=== PATIENT | male | born 1975 | race Two or more races ===

== ENCOUNTER 2020-08-25 01:20 | Inpatient (IN) | payer MEDICAID, OTHER ==
[~2020-08-25] VITALS: Ht 185.4 cm; Wt 71.5 kg
[2020-08-25 01:58] LABS: Hematocrit 44.1 % (41.0-53.0); Hemoglobin 14.6 g/dL (13.5-17.5); Mean Corpuscular Hgb Conc. 33.2 g/dL (32.0-36.0); Mean Corpuscular Volume 84.3 fL (80.0-100.0); Platelet Count (auto) 280 10^3/uL (140-450); Red Blood Cells 5.23 10^6/uL (4.5-5.90); Red Cell Distribution Width 14.9 % (11.8-14.3); White Blood Cell 11.4 10^3/uL (4.4-10.8)
[2020-08-25 02:13] LABS: INR 1.03 (0.9-1.15); Partial Thromboplastin Time 28.7 sec (23.0-31.2)
[2020-08-25 02:23] LABS: Basophils % (manual) 0 (0.0-2.0); Blast Cells 0; Metamyelocytes % 0; Monocytes % (manual) 0 (0-12); Myelocytes % 0; Promyelocytes % 0; Reactive Lymphocytes 0
[2020-08-25 02:25] LABS: Albumin 3.3 g/dL (3.4-5.0); Anion Gap 7 (5-15); BUN/Creatinine Ratio 20.8; Blood Urea Nitrogen 16 mg/dL (7-18); Calcium 8.4 mg/dL (8.5-10.1); Carbon Dioxide 24 mmol/L (21-32); Chloride 108 mmol/L (98-107); GFR African American 140 mL/min; GFR Non-African American 116 mL/min; Glucose 81 mg/dL (74-106); Potassium 4.2 mmol/L (3.5-5.1); Sodium 139 mmol/L (136-145)
[2020-08-25 02:31] LABS: Alanine Aminotransferase 17 U/L (16-61); Alkaline Phosphatase 160 U/L (45-117); Aspartate Aminotransferase 9 U/L (15-37); Bilirubin, Total 0.3 mg/dL (0.2-1.0); Total Protein 7.1 g/dL (6.4-8.2)
[2020-08-25] MEDS ORDERED: methylPREDNISolone SOD SUCC 125 MG/2 ML VL IV ONE (02:45)
[2020-08-25] MEDS ORDERED: levoFLOXacin 750MG 150 ML IV ONE (02:45)
[2020-08-25] MEDS ORDERED: IPRATROPIUM BROM 0.5 MG/2.5ML INH SOL HHN ONE (02:45)
[2020-08-25] MEDS ORDERED: ALBUTEROL SULF 2.5 MG/0.5ML(0.5%) NEB SOLN HHN ONE (02:45)
[2020-08-25 03:24] LABS: Band Neutrophils % (manual) 2; Eosinophils % (manual) 21 (0-7); Lymphocytes % (manual) 26 (10.0-50.0)
[2020-08-25] MEDS ORDERED: AZITHROMYCIN 500MG/ 250ML 250 ML IV ONE (07:00)
[2020-08-25] MEDS ORDERED: cefTRIAXone 1GM/50ML D5W 50 ML IV ONE (07:00)
[2020-08-25] MEDS ORDERED: MORPHINE SULFATE 4 MG/ML SYR/VIAL IV PRN (07:30)
[2020-08-25] MEDS ORDERED: MORPHINE SULF INJ 2 MG/ML SYRINGE 1ML IV PRN (07:30)
[2020-08-25] MEDS ORDERED: ACETAMINOPHEN 325 MG TAB PO PRN (07:30)
[2020-08-25] MEDS ORDERED: ONDANSETRON HCL 4 MG/2 ML VIAL IV PRN (07:30)
[2020-08-25] MEDS ORDERED: DOCUSATE SOD 100 MG CAP PO PRN (07:30)
[2020-08-25] MEDS ORDERED: NITROGLYCERIN 0.4 MG SL TAB SL PRN (07:30)
[2020-08-25] MEDS ORDERED: TEMAZEPAM 15 MG CAP PO PRN (07:30)
[2020-08-25 08:54] LABS: Cholesterol 148 mg/dL (< 200); HDL Cholesterol 43 mg/dL (40-59); LDL Cholesterol 92 mg/dL (< 100); Triglycerides 54 mg/dL (< 150)
[2020-08-25] MEDS: cefTRIAXone 1GM/50ML D5W 50 ML IV SCH (09:00)
[2020-08-25 09:06] LABS: CRP High Sensitivity 1.07 mg/dL (< 0.3)
[2020-08-25] MEDS: ALBUTEROL SULF 2.5 MG/0.5ML(0.5%) NEB SOLN NEB PRN (09:55)
[2020-08-25] MEDS: IPRATROPIUM BROM 0.5 MG/2.5ML INH SOL NEB PRN (09:55)
[2020-08-25 10:31] VITALS: BP 106/69
[2020-08-25] MEDS: ZINC SULFATE 220mg CAP or TAB PO SCH (10:40)
[2020-08-25] MEDS: MULTIPLE VITAMIN TAB PO SCH (10:40)
[2020-08-25] MEDS: FAMOTIDINE 20 MG TAB PO SCH ×2 (10:40→21:02)
[2020-08-25] MEDS: ASCORBIC ACID 500 MG TAB PO SCH ×2 (10:41→21:02)
[2020-08-25] MEDS: ENOXAPARIN SOD 40 MG/0.4 ML SYRINGE SC SCH (10:41)
[2020-08-25 11:00] VITALS: BP 106/69
[2020-08-25 12:28] LABS: Urine Bacteria NONE SEEN /hpf (None Seen); Urine Blood Negative /uL (Negative); Urine Specific Gravity 1.006 (1.001-1.035); Urine WBC <1 /hpf (0 - 3)
[2020-08-25 12:58] VITALS: BP 116/72
[2020-08-25 16:54] VITALS: BP 101/57
[2020-08-25] MEDS: HYDROcodone-ACET 5/325MG TAB PO PRN (17:01)
[2020-08-25] MEDS: methylPREDNISolone SOD SUCC 40 MG/ML VL IV SCH (19:36)
[2020-08-25 22:51] VITALS: BP 107/53
[2020-08-25 23:35] LABS: Amphetamine Screen, Urine POSITIVE (NEGATIVE); Barbiturate Scree,Urine NEGATIVE (NEGATIVE); Benzodiazephine Screen, Urine NEGATIVE (NEGATIVE); Cannabinoid Screen, Urine NEGATIVE (NEGATIVE); Cocaine Screen, Urine NEGATIVE (NEGATIVE); Opiate Scree,Urine POSITIVE (NEGATIVE); Phencyclidine Screen, Urine NEGATIVE (NEGATIVE)
[2020-08-26] MEDS: HYDROcodone-ACET 5/325MG TAB PO PRN ×2 (04:41→12:35)
[2020-08-26] MEDS ORDERED: ALBUAER3 IN (04:43)
[2020-08-26] MEDS ORDERED: PERCOT PO (04:43)
[2020-08-26 05:10] VITALS: BP 117/71
[2020-08-26 07:18] LABS: Basophils # (auto) 0 10 ^3/uL (0-0.2); Basophils % (auto) 0.1 % (0.0-2.0); Eosinophils # (auto) 0 10 ^3/uL (0-0.8); Hematocrit 43.1 % (41.0-53.0); Hemoglobin 14.2 g/dL (13.5-17.5); Lymphocytes % (auto) 5.9 % (10.0-50.0); Mean Corpuscular Volume 84.9 fL (80.0-100.0); Monocytes # (auto) 0.9 10 ^3/uL (0-1.3); Monocytes % (auto) 5.5 % (0.0-12.0); Neutrophils # (auto) 14.8 10 ^3/uL (1.6-8.6); Neutrophils % (auto) 88.5 % (37.0-80.0); Nucleated Red Blood Cells % 0.1 %; Platelet Count (auto) 286 10^3/uL (140-450); Red Blood Cells 5.08 10^6/uL (4.5-5.90); Red Cell Distribution Width 14.7 % (11.8-14.3); White Blood Cell 16.7 10^3/uL (4.4-10.8)
[2020-08-26 07:42] LABS: Potassium 4.9 mmol/L (3.5-5.1)
[2020-08-26 07:55] LABS: BUN/Creatinine Ratio 26.2; Bilirubin, Total 0.3 mg/dL (0.2-1.0); Calcium 8.5 mg/dL (8.5-10.1); Total Protein 6.6 g/dL (6.4-8.2)
[2020-08-26] MEDS: methylPREDNISolone SOD SUCC 40 MG/ML VL IV SCH (08:24)
[2020-08-26] MEDS: cefTRIAXone 1GM/50ML D5W 50 ML IV SCH (08:25)
[2020-08-26 08:35] VITALS: BP 96/55
[2020-08-26] MEDS ORDERED: AZITHROMYCIN 500MG/ 250ML 250 ML IV SCH (10:00)
[2020-08-26] MEDS: ASCORBIC ACID 500 MG TAB PO SCH (10:14)
[2020-08-26] MEDS: ZINC SULFATE 220mg CAP or TAB PO SCH (10:14)
[2020-08-26] MEDS: MULTIPLE VITAMIN TAB PO SCH (10:14)
[2020-08-26] MEDS: FAMOTIDINE 20 MG TAB PO SCH (10:14)
[2020-08-26] MEDS: ENOXAPARIN SOD 40 MG/0.4 ML SYRINGE SC SCH (10:14)
[2020-08-26] MEDS: IPRATROPIUM BROM 0.5 MG/2.5ML INH SOL NEB PRN (10:42)
[2020-08-26] MEDS: ALBUTEROL SULF 2.5 MG/0.5ML(0.5%) NEB SOLN NEB PRN (10:42)
[2020-08-26 12:37] VITALS: BP 99/55
[2020-08-26] MEDS ORDERED: NICOTINE 14 MG/24HR TOPICAL PATCH TD ONE (15:45)
[2020-08-27] MEDS ORDERED: NICOTINE 14 MG/24HR TOPICAL PATCH TD SCH (10:00)
== END 2020-08-26 16:40 | disposition left against medical advice (07) | DRG 133 ==
LOC: ER 01:22 → TELE 07:25 → TELE-WESTW 10:33
PROVIDERS: ADMIT Nurse Practitioner; ATTEND Nurse Practitioner
DX: J96.01 Acute respiratory failure with hypoxia (principal); J18.9 Pneumonia, unspecified organism; J44.0 Chronic obstructive pulmonary disease with (acute) lower respiratory infection; J45.901 Unspecified asthma with (acute) exacerbation; J44.1 Chronic obstructive pulmonary disease with (acute) exacerbation; E88.09 Other disorders of plasma-protein metabolism, not elsewhere classified; Z20.822 Contact with and (suspected) exposure to COVID-19; F17.210 Nicotine dependence, cigarettes, uncomplicated; Z79.899 Other long term (current) drug therapy
CPT/HCPCS: 36415; 71045; 80053; 80061; 80307; 81001; 82728; 83036; 83605; 83615; 83735; 83880; 84443; 84484; 85007; 85025; 85027; 85379; 85610; 85730; 86141; 87040; 87081; 87426; 93005; 94640; 94644; 96365; 96367; 96375; G0378; J0696; J1956; J2405

== ENCOUNTER 2020-09-20 03:32 | Inpatient (IN) | payer MEDICAID ==
[~2020-09-20] VITALS: Ht 182.9 cm; Wt 69.0 kg
[~2020-09-20 03:32] MED LIST: ALBUAER3 IN; PERCOT PO
[2020-09-20] MEDS ORDERED: cefTRIAXone 1GM/50ML D5W 50 ML IV ONE (04:15)
[2020-09-20 05:17] LABS: Basophils # (auto) 0.1 10 ^3/uL (0-0.2); Basophils % (auto) 0.4 % (0.0-2.0); Eosinophils # (auto) 1.8 10 ^3/uL (0-0.8); Eosinophils % (auto) 13.1 % (0.0-7.0); Hematocrit 45.8 % (41.0-53.0); Hemoglobin 15.2 g/dL (13.5-17.5); Lymphocytes # (auto) 1.3 10 ^3/uL (0.4-5.4); Lymphocytes % (auto) 9.4 % (10.0-50.0); Mean Corpuscular Hemoglobin 28.1 pg (28.0-32.0); Mean Corpuscular Hgb Conc. 33.2 g/dL (32.0-36.0); Mean Corpuscular Volume 84.6 fL (80.0-100.0); Monocytes % (auto) 7.1 % (0.0-12.0); Neutrophils # (auto) 9.5 10 ^3/uL (1.6-8.6); Platelet Count (auto) 347 10^3/uL (140-450); Red Blood Cells 5.42 10^6/uL (4.5-5.90); Red Cell Distribution Width 14.4 % (11.8-14.3); White Blood Cell 13.6 10^3/uL (4.4-10.8)
[2020-09-20 05:33] LABS: BUN/Creatinine Ratio 14.3; Calcium 9.1 mg/dL (8.5-10.1); Potassium 4.2 mmol/L (3.5-5.1)
[2020-09-20] MEDS ORDERED: ALBUTEROL SULF 2.5 MG/0.5ML(0.5%) NEB SOLN NEB ONE (07:45)
[2020-09-20] MEDS ORDERED: SODIUM CHLORIDE 0.9% 1,000 ML IV ONE ×2 (07:45→08:15)
[2020-09-20] MEDS ORDERED: IPRATROPIUM BROM 0.5 MG/2.5ML INH SOL NEB ONE (07:45)
[2020-09-20 08:02] LABS: Urine Bacteria NONE SEEN /hpf (None Seen); Urine Blood Negative /uL (Negative); Urine Mucus FEW (None Seen); Urine WBC 1 /hpf (0 - 3)
[2020-09-20 08:17] LABS: Alcohol, Urine < 3.0 mg/dL (0-10); Amphetamine Screen, Urine POSITIVE (NEGATIVE); Barbiturate Scree,Urine NEGATIVE (NEGATIVE); Benzodiazephine Screen, Urine NEGATIVE (NEGATIVE); Cannabinoid Screen, Urine NEGATIVE (NEGATIVE); Cocaine Screen, Urine NEGATIVE (NEGATIVE); Opiate Scree,Urine POSITIVE (NEGATIVE); Phencyclidine Screen, Urine NEGATIVE (NEGATIVE)
[2020-09-20] MEDS ORDERED: OXYCODONE W/ ACETAMINOPHEN 5/325MG TABLET PO ONE (10:15)
[2020-09-20] MEDS ORDERED: NITROGLYCERIN 0.4 MG SL TAB SL PRN (14:30)
[2020-09-20] MEDS ORDERED: ALBUTEROL SULF HFA 90MCG INH 200DOSE IN PRN (14:30)
[2020-09-20] MEDS ORDERED: ONDANSETRON HCL 4 MG/2 ML VIAL IV PRN (14:30)
[2020-09-20] MEDS ORDERED: MORPHINE SULF INJ 2 MG/ML SYRINGE 1ML IV PRN (14:30)
[2020-09-20] MEDS ORDERED: KETOROLAC TROMETH 30 MG/ML 1ML VIAL IV ONE (14:30)
[2020-09-20 17:14] VITALS: BP 111/61
[2020-09-20 17:23] VITALS: BP 111/61
[2020-09-20] MEDS: MORPHINE SULF INJ 2 MG/ML SYRINGE 1ML IV PRN (18:30)
[2020-09-20 20:00] VITALS: BP 116/77
[2020-09-20 21:40] VITALS: BP 116/77
[2020-09-20] MEDS ORDERED: OXYCODONE W/ ACETAMINOPHEN 5/325MG TABLET PO SCH (22:00)
[2020-09-20] MEDS: BUSPIRONE HCL 7.5 MG TAB PO SCH (22:00)
[2020-09-20] MEDS: traZODone HCL 50 MG TAB PO SCH (22:10)
[2020-09-20] MEDS: hydrOXYzine 25 MG TAB or CAP PO SCH (22:10)
[2020-09-20] MEDS: OXYCODONE W/ ACETAMINOPHEN 5/325MG TABLET PO SCH (22:10)
[2020-09-20] MEDS: methylPREDNISolone SOD SUCC 40 MG/ML VL IV SCH (22:34)
[2020-09-21 05:00] VITALS: BP 110/68
[2020-09-21] MEDS: methylPREDNISolone SOD SUCC 40 MG/ML VL IV SCH ×3 (06:09→20:57)
[2020-09-21] MEDS: OXYCODONE W/ ACETAMINOPHEN 5/325MG TABLET PO SCH ×3 (06:09→20:58)
[2020-09-21 06:48] LABS: Basophils # (auto) 0 10 ^3/uL (0-0.2); Basophils % (auto) 0.3 % (0.0-2.0); Eosinophils # (auto) 0.1 10 ^3/uL (0-0.8); Eosinophils % (auto) 0.9 % (0.0-7.0); Hematocrit 43.4 % (41.0-53.0); Hemoglobin 14.6 g/dL (13.5-17.5); Lymphocytes # (auto) 0.6 10 ^3/uL (0.4-5.4); Lymphocytes % (auto) 8.3 % (10.0-50.0); Mean Corpuscular Hemoglobin 28.5 pg (28.0-32.0); Mean Corpuscular Hgb Conc. 33.6 g/dL (32.0-36.0); Mean Corpuscular Volume 84.8 fL (80.0-100.0); Monocytes # (auto) 0.1 10 ^3/uL (0-1.3); Neutrophils # (auto) 6.9 10 ^3/uL (1.6-8.6); Neutrophils % (auto) 89.5 % (37.0-80.0); Nucleated Red Blood Cells % 0.1 %; Platelet Count (auto) 303 10^3/uL (140-450); Red Blood Cells 5.12 10^6/uL (4.5-5.90); Red Cell Distribution Width 14.4 % (11.8-14.3); White Blood Cell 7.7 10^3/uL (4.4-10.8)
[2020-09-21 07:10] LABS: Potassium 4.2 mmol/L (3.5-5.1)
[2020-09-21 07:20] LABS: BUN/Creatinine Ratio 13.3; Bilirubin, Total 0.3 mg/dL (0.2-1.0); Calcium 8.7 mg/dL (8.5-10.1); Total Protein 7.1 g/dL (6.4-8.2)
[2020-09-21] MEDS: MORPHINE SULF INJ 2 MG/ML SYRINGE 1ML IV PRN ×5 (07:56→23:58)
[2020-09-21 09:00] VITALS: BP 100/66
[2020-09-21] MEDS: levoFLOXacin 500MG 100 ML IV SCH (09:43)
[2020-09-21] MEDS: NICOTINE 21MG/24 HR TOPICAL PATCH TD SCH (09:44)
[2020-09-21 12:28] VITALS: BP 101/56
[2020-09-21] MEDS ORDERED: ALBUTEROL SULF 2.5 MG/0.5ML(0.5%) NEB SOLN NEB PRN ×2 (14:30→14:45)
[2020-09-21 14:35] VITALS: BP 101/56
[2020-09-21] MEDS ORDERED: ALBUTEROL SULF 2.5 MG/0.5ML(0.5%) NEB SOLN ONE (14:37)
[2020-09-21 17:00] VITALS: BP 99/56
[2020-09-21] MEDS: BUSPIRONE HCL 7.5 MG TAB PO SCH (20:57)
[2020-09-21] MEDS: traZODone HCL 50 MG TAB PO SCH (20:58)
[2020-09-21] MEDS: hydrOXYzine 25 MG TAB or CAP PO SCH (20:59)
[2020-09-21] MEDS: ALBUTEROL SULF 2.5 MG/0.5ML(0.5%) NEB SOLN NEB PRN (21:29)
[2020-09-21 22:00] VITALS: BP 100/54
[2020-09-22] MEDS: MORPHINE SULF INJ 2 MG/ML SYRINGE 1ML IV PRN ×2 (04:16→08:35)
[2020-09-22 04:53] LABS: Basophils # (auto) 0.1 10 ^3/uL (0-0.2); Basophils % (auto) 0.3 % (0.0-2.0); Eosinophils # (auto) 0 10 ^3/uL (0-0.8); Hematocrit 41.2 % (41.0-53.0); Hemoglobin 13.8 g/dL (13.5-17.5); Lymphocytes % (auto) 5.6 % (10.0-50.0); Mean Corpuscular Hemoglobin 28.5 pg (28.0-32.0); Mean Corpuscular Hgb Conc. 33.6 g/dL (32.0-36.0); Monocytes # (auto) 1.1 10 ^3/uL (0-1.3); Monocytes % (auto) 6.2 % (0.0-12.0); Neutrophils % (auto) 87.9 % (37.0-80.0); Platelet Count (auto) 339 10^3/uL (140-450); Red Blood Cells 4.85 10^6/uL (4.5-5.90); Red Cell Distribution Width 14.4 % (11.8-14.3); White Blood Cell 18.2 10^3/uL (4.4-10.8)
[2020-09-22 05:00] VITALS: BP 99/55
[2020-09-22 05:15] LABS: Albumin 2.8 g/dL (3.4-5.0); Calcium 8.9 mg/dL (8.5-10.1); Potassium 4.6 mmol/L (3.5-5.1)
[2020-09-22 05:20] LABS: BUN/Creatinine Ratio 30.4; Bilirubin, Total 0.1 mg/dL (0.2-1.0); Total Protein 6.6 g/dL (6.4-8.2)
[2020-09-22] MEDS: OXYCODONE W/ ACETAMINOPHEN 5/325MG TABLET PO SCH (05:29)
[2020-09-22] MEDS: methylPREDNISolone SOD SUCC 40 MG/ML VL IV SCH (05:30)
[2020-09-22 08:30] VITALS: BP 109/62
[2020-09-22] MEDS: levoFLOXacin 500MG 100 ML IV SCH (08:35)
[2020-09-22] MEDS: NICOTINE 21MG/24 HR TOPICAL PATCH TD SCH (08:36)
[2020-09-22] MEDS: ALBUTEROL SULF 2.5 MG/0.5ML(0.5%) NEB SOLN NEB PRN (09:08)
[2020-09-22 12:30] VITALS: BP 120/71
== END 2020-09-22 13:05 | disposition home or self-care (01) | DRG 139 ==
LOC: EDBD 03:32 → ER 03:32 → TELE-CENTR 14:26
PROVIDERS: ADMIT Internal Medicine; ATTEND Internal Medicine
DX: J18.9 Pneumonia, unspecified organism (principal); J96.01 Acute respiratory failure with hypoxia; J44.0 Chronic obstructive pulmonary disease with (acute) lower respiratory infection; J44.1 Chronic obstructive pulmonary disease with (acute) exacerbation; J45.901 Unspecified asthma with (acute) exacerbation; G89.4 Chronic pain syndrome; F15.10 Other stimulant abuse, uncomplicated; G40.909 Epilepsy, unspecified, not intractable, without status epilepticus; F17.210 Nicotine dependence, cigarettes, uncomplicated; H54.62 Unqualified visual loss, left eye, normal vision right eye; Z20.822 Contact with and (suspected) exposure to COVID-19; F11.90 Opioid use, unspecified, uncomplicated
CPT/HCPCS: 36415; 71046; 80048; 80053; 80307; 81001; 83735; 84443; 85025; 87081; 87426; 93005; 93306; 94640; 96361; 96365; G0378; J0696; J1885; J1956